=== PATIENT | female | born 1945 | race Caucasian/White ===

== ENCOUNTER → 2020-05-15 | Outpatient (REF) | payer BC, MEDICARE | LOC: M SMT 17:08 | PROVIDERS: ATTEND Urology | DX: Z85.51 Personal history of malignant neoplasm of bladder (principal) ==

== ENCOUNTER → 2020-06-14 | Outpatient (CLI) | payer BC, MEDICARE ==
[~2020-06-14] MED LIST: AMLO1TAB24 PO; ATOR1TAB21 PO; BUSP5TA PO; CITA40TA4 PO; COLA100C5 PO; ECOT81TA5 PO; GABA-282 PO; HYDR-3490 PO; ONDA4TAB6 PO; TRAM50TA2 PO
== END ==
LOC: M LABSMTC 11:06
PROVIDERS: ATTEND Anesthesiology
DX: Z01.812 Encounter for preprocedural laboratory examination (principal); Z20.822 Contact with and (suspected) exposure to COVID-19

== ENCOUNTER 2020-06-19 07:38 | Day surgery (SDC) | payer BC, MEDICARE ==
[~2020-06-19] VITALS: Ht 160 cm; Wt 91.6 kg
[~2020-06-19 07:38] MED LIST changes: +LIDOCAINE 1% MDV 20ML VIAL SQ PRN; +LR 1,000 ML IV ONE; +ceFAZolin SOD 2 GM in IV 1 EA IV ONE
[2020-06-19] MEDS ORDERED: ONDANSETRON 4MG/2ML VIAL As Ordered ONE (10:03)
[2020-06-19] MEDS ORDERED: ROCURONIUM BROMIDE 50 MG/5 ML VIAL As Ordered ONE (10:03)
[2020-06-19] MEDS ORDERED: fentaNYL 100 MCG/2 ML INJECTION (J3010) As Ordered ONE (10:03)
[2020-06-19] MEDS ORDERED: MIDAZOLAM INJ 2MG/2ML VIAL (J2250 PER 1MG) As Ordered ONE (10:03)
[2020-06-19] MEDS ORDERED: SUGAMMADEX SODIUM 500 MG/5 ML VIAL (BRIDION) As Ordered ONE (10:03)
[2020-06-19] MEDS ORDERED: dexameTHASONE 4 MG/ML 1ML VIAL (J1100 PER 1MG) As Ordered ONE (10:03)
[2020-06-19] MEDS ORDERED: LIDOCAINE 2% 100MG/5ML SDV (FOR ANES.) As Ordered ONE (10:03)
[2020-06-19] MEDS ORDERED: propofoL 200 MG/20 ML VIAL As Ordered ONE (10:03)
[2020-06-19] MEDS ORDERED: ACETAMINOPHEN 1000MG 100ML IV BTL (OFIRMEV) (J0131 PER 10MG) As Ordered ONE (10:22)
--- NOTE | 2020-06-19 11:04 | RO ---
OPERATIVE NOTE DATE OF OPERATION: 06/19/2020 PREOPERATIVE DIAGNOSIS: Bladder cancer. POSTOPERATIVE DIAGNOSIS: Bladder cancer. PROCEDURE: Cystoscopy, transurethral resection of bladder tumors (between 2 and 5 cm). SURGEON: Wenceslao Marquez MD EQUIPMENT TECHNICIAN: None. ANESTHESIA: General. OPERATIVE INDICATIONS: This 74-year-old female was diagnosed with bladder cancer approximately two years ago by another urologist. She transferred her care to our office and had cystoscopy done about a month ago. She was noted to have recurrence of several small tumors throughout the bladder. She is brought to the operating room today for treatment. DESCRIPTION OF PROCEDURE: The patient was brought to the operating room and general anesthesia was induced. Prophylactic antibiotics were used. She was placed in dorsal lithotomy position and prepped and draped in usual sterile fashion. Resectoscope was inserted in the urethral meatus and advanced into the bladder using visual obturator. The bladder was then thoroughly examined. It was noted that she had several small patches of tumors in several areas throughout the bladder. At this point a bipolar loop was utilized to resect the larger tumors. Any smaller tumors were fulgurated using the coagulation current. All the specimens were removed from the bladder and sent for pathologic analysis. The base of each resection area was cauterized using coagulating current. Once satisfied with hemostasis and satisfied that all the tumors had either been removed or fulgurated the resectoscope was removed. An 18-[place] catheter was inserted into the bladder. The balloon was filled with sterile water and then catheter was connected to gravity drainage. This marked the conclusion of the procedure. The patient was taken out of the dorsal lithotomy position, awakened from anesthesia and transported to the recovery room in stable condition. ESTIMATED BLOOD LOSS: 5 mL. COMPLICATIONS: None. SPECIMEN: Bladder tumors. PLAN: The patient will follow up in urology clinic in a few days for catheter removal and to discuss her pathology results. ANAND
[2020-06-19] MEDS ORDERED: LR 1,000 ML IV SCH (11:35)
[2020-06-19] MEDS ORDERED: fentaNYL 100 MCG/2 ML INJECTION (J3010) IV PRN (11:35)
[2020-06-19] MEDS ORDERED: oxyCODONE 5MG TAB PO PRN (11:35)
[2020-06-19] MEDS ORDERED: ONDANSETRON 4MG/2ML VIAL IV PRN (11:35)
[2020-06-19] MEDS ORDERED: ACETAMINOPHEN TAB 650MG DOSE (2X325MG) PO PRN (11:35)
[2020-06-19 15:50] VITALS: BP 183/86
== END 2020-06-19 16:25 | disposition home or self-care (01) ==
LOC: M SDC 07:38
PROVIDERS: ATTEND Urology
DX: C67.8 Malignant neoplasm of overlapping sites of bladder (principal); I10 Essential (primary) hypertension; E78.5 Hyperlipidemia, unspecified; F41.9 Anxiety disorder, unspecified; M79.7 Fibromyalgia; J44.9 Chronic obstructive pulmonary disease, unspecified; Z87.891 Personal history of nicotine dependence; Z98.61 Coronary angioplasty status; Z79.899 Other long term (current) drug therapy
CPT/HCPCS: 52235; 88305; J0131; J0690; J1100; J2250; J2405; J3010

== ENCOUNTER → 2020-11-11 | Outpatient (REF) | payer BC, MEDICARE ==
[~2020-11-11] MED LIST changes: -LIDOCAINE 1% MDV 20ML VIAL SQ PRN; -LR 1,000 ML IV ONE; -ceFAZolin SOD 2 GM in IV 1 EA IV ONE
== END ==
LOC: M SMT 19:03
PROVIDERS: ATTEND Urology
DX: C67.9 Malignant neoplasm of bladder, unspecified (principal)

== ENCOUNTER → 2021-03-03 | Outpatient (REF) | payer BC, MEDICARE | LOC: M SMT 19:04 | PROVIDERS: ATTEND Urology | DX: C67.9 Malignant neoplasm of bladder, unspecified (principal) ==

== ENCOUNTER 2021-05-15 11:45 | Inpatient (IN) | payer MEDICARE, OTHER ==
[~2021-05-15] VITALS: Ht 154.9 cm; Wt 78.4 kg
[~2021-05-15 11:45] MED LIST changes: -CITA40TA4 PO; +CITA40TA7 PO
[2021-05-15] MEDS ORDERED: FLUO10CA18 PO (11:56)
[2021-05-15] MEDS ORDERED: HYDR12.55 PO (11:56)
[2021-05-15] MEDS ORDERED: NS 1,000 ML IV ONE (15:15)
[2021-05-15] MEDS ORDERED: SODIUM CHLORIDE 0.9% INJ 10 ML SYR IV PRN (15:35)
[2021-05-15 16:06] LABS: BASO % 0.5 % (0.0-1.0); EOS # 0.1 10^3/uL (0.0-0.5); EOS % 1.4 % (0.0-3.0); HEMATOCRIT 38.3 % (36.0-47.0); HEMOGLOBIN 12.2 g/dl (12.0-15.5); LYMPH # 1.7 10^3/uL (1.5-5.0); LYMPH % 30.1 % (24.0-44.0); MEAN CORPUSCULAR HEMOGLOBIN 28.6 pg (27.0-33.0); MEAN CORPUSCULAR HGB CONC 31.9 g/dl (32.0-36.5); MEAN CORPUSCULAR VOLUME 89.7 fl (80.0-96.0); MONO # 0.4 10^3/uL (0.0-0.8); MONO % 6.3 % (2.0-8.0); NEUTROPHILS # 3.5 10^3/uL (1.5-8.5); NEUTROPHILS % 61.5 % (36.0-66.0); PLATELET COUNT, AUTOMATED 235 10^3/uL (150-450); RED BLOOD COUNT 4.27 10^6/uL (4.00-5.40); WHITE BLOOD COUNT 5.7 10^3/uL (4.0-10.0)
[2021-05-15 16:17] LABS: INR 0.91; PROTHROMBIN TIME 12.7 SECONDS (12.7-14.5)
[2021-05-15 16:18] LABS: PARTIAL THROMBOPLASTIN TIME 34.8 SECONDS (25.9-37.0)
[2021-05-15 16:20] LABS: D-DIMER QUANT 920.81 ng/ml (<500)
[2021-05-15 16:34] LABS: ERYTHROCYTE SEDIMENTATION RATE 33 mm/hr (0-30)
[2021-05-15 17:12] LABS: ALBUMIN 2.4 GM/DL (3.2-5.2); BILIRUBIN,DIRECT 0.2 MG/DL (0.0-0.2); BILIRUBIN,TOTAL 0.3 MG/DL (0.2-1.0); C REACTIVE PROTEIN QUANTITATIV 0.3 MG/DL (0.00-0.30); CALCIUM LEVEL 6.7 MG/DL (8.8-10.2); CREATININE FOR GFR 1.03 MG/DL (0.55-1.30); GLOMERULAR FILTRATION RATE 55.9 (>39); POTASSIUM SERUM 2.6 MEQ/L (3.5-5.1); TOTAL PROTEIN 4.9 GM/DL (6.4-8.2)
[2021-05-15] MEDS ORDERED: POTASSIUM CHLORIDE 10MEQ SR TABLET PO ONE (17:20)
[2021-05-15] MEDS ORDERED: KCL 10MEQ/100ML SWI (KRUN) 10 MEQ in IV 1 EA IV ONE (17:20)
[2021-05-15] MEDS ORDERED: ISOVUE-370 76% 100ML VIAL As Ordered ONE (17:23)
[2021-05-15 17:39] LABS: MAGNESIUM LEVEL 1.5 MG/DL (1.8-2.4)
[2021-05-15] MEDS ORDERED: MAG SULF 1GM/100ML (MAG RUN) 1 GM in IV 1 EA IV ONE (17:45)
[2021-05-15] MEDS ORDERED: ACETAMINOPHEN TAB 650MG DOSE (2X325MG) PO PRN (18:25)
[2021-05-15] MEDS ORDERED: NS 1,000 ML IV SCH (18:25)
[2021-05-15] MEDS ORDERED: AMLO25TA PO (19:01)
[2021-05-15] MEDS ORDERED: FLUV25TA13 PO (19:01)
[2021-05-15] MEDS ORDERED: HOME MED LIST COMPLETE! XX SCH (19:05)
[2021-05-15] MEDS ORDERED: DOCUSATE SODIUM 100MG CAPSULE PO PRN (20:00)
[2021-05-15] MEDS ORDERED: cefTRIAXone SOD 1 GM in D5W MINI-BAG PLUS 50 ML IV SCH (21:00)
[2021-05-15 22:49] LABS: CALCIUM LEVEL 8.5 MG/DL (8.8-10.2); CREATININE FOR GFR 1.47 MG/DL (0.55-1.30); GLOMERULAR FILTRATION RATE 37.1 (>39)
[2021-05-15 22:50] LABS: CK-MB VALUE MASS < 1.0 NG/ML (<3.6); CPK CREATINE PHOSPHOKINASE 52 U/L (26-192); MB/CK RELATIVE INDEX 1.92 (< OR =4)
[2021-05-15] MEDS: POTASSIUM CHLORIDE 10% LIQ 20 MEQ/15 ML UDC PO ONE ×2 (23:00→23:05)
[2021-05-15] MEDS: busPIRone 5 MG TAB PO SCH (23:05)
[2021-05-15 23:30] VITALS: BP 119/86
[2021-05-16 06:00] VITALS: BP 148/61
[2021-05-16 06:30] LABS: BASO % 0.3 % (0.0-1.0); EOS # 0.2 10^3/uL (0.0-0.5); EOS % 2.3 % (0.0-3.0); HEMATOCRIT 36.4 % (36.0-47.0); HEMOGLOBIN 11.7 g/dl (12.0-15.5); LYMPH # 2.1 10^3/uL (1.5-5.0); MEAN CORPUSCULAR HGB CONC 32.1 g/dl (32.0-36.5); MEAN CORPUSCULAR VOLUME 90.1 fl (80.0-96.0); MONO # 0.5 10^3/uL (0.0-0.8); MONO % 8.2 % (2.0-8.0); NEUTROPHILS # 3.6 10^3/uL (1.5-8.5); PLATELET COUNT, AUTOMATED 210 10^3/uL (150-450); RED BLOOD COUNT 4.04 10^6/uL (4.00-5.40); WHITE BLOOD COUNT 6.5 10^3/uL (4.0-10.0)
[2021-05-16 07:01] LABS: C REACTIVE PROTEIN QUANTITATIV 0.3 MG/DL (0.00-0.30); CALCIUM LEVEL 8.9 MG/DL (8.8-10.2); CREATININE FOR GFR 1.37 MG/DL (0.55-1.30); GLOMERULAR FILTRATION RATE 40.2 (>39); POTASSIUM SERUM 3.8 MEQ/L (3.5-5.1)
[2021-05-16] MEDS: ENOXAPARIN 30MG/0.3ML SYRINGE (J1650 PER 10MG) SC SCH (08:33)
[2021-05-16] MEDS: busPIRone 5 MG TAB PO SCH ×2 (08:33→20:53)
[2021-05-16] MEDS: ASPIRIN 81MG ENTERIC TABLET PO SCH (08:33)
[2021-05-16] MEDS: ATORVASTATIN 20 MG TAB PO SCH (08:33)
[2021-05-16] MEDS ORDERED: LACTOBACILLUS ACIDOPHILUS CAP (BACID) PO SCH (09:00)
[2021-05-16] MEDS: traMADol 50 MG TAB PO PRN ×3 (16:04→22:32)
[2021-05-16 16:26] VITALS: BP 171/71
[2021-05-16 22:00] VITALS: BP 168/70
[2021-05-17 06:00] VITALS: BP 170/78
[2021-05-17 07:10] LABS: HEMATOCRIT 35.9 % (36.0-47.0); HEMOGLOBIN 11.3 g/dl (12.0-15.5); MEAN CORPUSCULAR HEMOGLOBIN 28.6 pg (27.0-33.0); MEAN CORPUSCULAR HGB CONC 31.5 g/dl (32.0-36.5); MEAN CORPUSCULAR VOLUME 90.9 fl (80.0-96.0); PLATELET COUNT, AUTOMATED 201 10^3/uL (150-450); RED BLOOD COUNT 3.95 10^6/uL (4.00-5.40); WHITE BLOOD COUNT 6.3 10^3/uL (4.0-10.0)
[2021-05-17 07:36] LABS: C REACTIVE PROTEIN QUANTITATIV 0.3 MG/DL (0.00-0.30); CALCIUM LEVEL 8.6 MG/DL (8.8-10.2); CREATININE FOR GFR 1.43 MG/DL (0.55-1.30); GLOMERULAR FILTRATION RATE 38.3 (>39); POTASSIUM SERUM 3.7 MEQ/L (3.5-5.1)
[2021-05-17 08:06] VITALS: BP 175/82
[2021-05-17 09:07] VITALS: BP 170/68
[2021-05-17] MEDS: ASPIRIN 81MG ENTERIC TABLET PO SCH (09:31)
[2021-05-17] MEDS: ATORVASTATIN 20 MG TAB PO SCH (09:31)
[2021-05-17] MEDS: busPIRone 5 MG TAB PO SCH ×2 (09:33→20:18)
[2021-05-17] MEDS: ENOXAPARIN 30MG/0.3ML SYRINGE (J1650 PER 10MG) SC SCH (09:33)
[2021-05-17] MEDS ORDERED: VANCOMYCIN HCL 500 MG in D5W MINI-BAG PLUS 100 ML IV SCH (10:00)
[2021-05-17] MEDS ORDERED: VANCOMYCIN HCL 1,000 MG, VIAL MATE ADAPTER 1 EACH in NS 250 ML IV ONE ×2 (11:00→12:00)
[2021-05-17] MEDS: traMADol 50 MG TAB PO PRN ×2 (11:06→20:19)
[2021-05-17 14:00] VITALS: BP 145/70
[2021-05-17 22:00] VITALS: BP 160/66
[2021-05-18 05:37] LABS: HEMOGLOBIN 10.9 g/dl (12.0-15.5); MEAN CORPUSCULAR HEMOGLOBIN 29.2 pg (27.0-33.0); MEAN CORPUSCULAR HGB CONC 32.1 g/dl (32.0-36.5); MEAN CORPUSCULAR VOLUME 91.2 fl (80.0-96.0); PLATELET COUNT, AUTOMATED 180 10^3/uL (150-450); RED BLOOD COUNT 3.73 10^6/uL (4.00-5.40); WHITE BLOOD COUNT 5.9 10^3/uL (4.0-10.0)
[2021-05-18 06:00] VITALS: BP 159/68
[2021-05-18 06:03] LABS: CALCIUM LEVEL 8.4 MG/DL (8.8-10.2); CREATININE FOR GFR 1.3 MG/DL (0.55-1.30); GLOMERULAR FILTRATION RATE 42.7 (>39); POTASSIUM SERUM 3.7 MEQ/L (3.5-5.1)
[2021-05-18] MEDS: ATORVASTATIN 20 MG TAB PO SCH (09:45)
[2021-05-18] MEDS: ASPIRIN 81MG ENTERIC TABLET PO SCH (09:45)
[2021-05-18 09:46] VITALS: BP 152/57
[2021-05-18] MEDS: busPIRone 5 MG TAB PO SCH (09:46)
[2021-05-18] MEDS: ENOXAPARIN 30MG/0.3ML SYRINGE (J1650 PER 10MG) SC SCH (09:47)
[2021-05-18] MEDS ORDERED: VANCOMYCIN HCL 1,000 MG, VIAL MATE ADAPTER 1 EACH in NS 250 ML IV SCH (11:00)
[2021-05-18] MEDS: traMADol 50 MG TAB PO PRN (11:22)
[2021-05-18 14:00] VITALS: BP 166/73
[2021-05-19] MEDS ORDERED: amLODIPine 5 MG TAB PO SCH (09:00)
== END 2021-05-18 18:40 | disposition home or self-care (01) | DRG 392 ==
LOC: M ED 11:45 → M ED INP 11:46 → M MSPAV 23:22 → OBSVTOIN 05-16 14:22
PROVIDERS: ADMIT Internal Medicine; ATTEND Family Medicine
DX: K52.9 Noninfective gastroenteritis and colitis, unspecified (principal); I12.9 Hypertensive chronic kidney disease with stage 1 through stage 4 chronic kidney disease, or unspecified chronic kidney disease; C67.9 Malignant neoplasm of bladder, unspecified; E87.6 Hypokalemia; E83.42 Hypomagnesemia; J44.9 Chronic obstructive pulmonary disease, unspecified; R53.1 Weakness; N30.80 Other cystitis without hematuria; Z79.899 Other long term (current) drug therapy; Z79.82 Long term (current) use of aspirin; Z91.040 Latex allergy status; Z88.8 Allergy status to other drugs, medicaments and biological substances; M79.7 Fibromyalgia; M19.90 Unspecified osteoarthritis, unspecified site; I25.10 Atherosclerotic heart disease of native coronary artery without angina pectoris; F41.9 Anxiety disorder, unspecified; F32.9 Major depressive disorder, single episode, unspecified; Z98.41 Cataract extraction status, right eye; Z98.42 Cataract extraction status, left eye; Z95.2 Presence of prosthetic heart valve; Z87.891 Personal history of nicotine dependence; E78.5 Hyperlipidemia, unspecified; N18.9 Chronic kidney disease, unspecified; R30.0 Dysuria

== ENCOUNTER → 2021-06-09 | Outpatient (REF) | payer OTHER, MEDICARE ==
[~2021-06-09] MED LIST changes: +AMLO25TA PO; +FLUO10CA18 PO; +FLUV25TA13 PO; +HYDR12.55 PO
== END ==
LOC: M SMT 12:57
PROVIDERS: ATTEND Urology
DX: C67.9 Malignant neoplasm of bladder, unspecified (principal)

== ENCOUNTER → 2021-09-23 | Outpatient (REF) | payer OTHER, MEDICARE | LOC: M SMT 16:48 | PROVIDERS: ATTEND Urology | DX: C67.9 Malignant neoplasm of bladder, unspecified (principal) ==

== ENCOUNTER → 2022-01-05 | Outpatient (REF) | payer MEDICARE, OTHER | LOC: M SMT 13:11 | PROVIDERS: ATTEND Urology | DX: C67.9 Malignant neoplasm of bladder, unspecified (principal) ==

== ENCOUNTER → 2022-03-30 | Outpatient (REF) | payer MEDICARE, OTHER | LOC: M SMT 13:11 | PROVIDERS: ATTEND Urology | DX: C67.9 Malignant neoplasm of bladder, unspecified (principal) ==

== ENCOUNTER → 2022-06-29 | Outpatient (REF) | payer MEDICARE, OTHER | LOC: M SMT 16:41 | PROVIDERS: ATTEND Urology | DX: C67.9 Malignant neoplasm of bladder, unspecified (principal) ==